=== PATIENT | female | born 1990 | race African-American/Black ===

== ENCOUNTER 2021-01-16 19:53 | Emergency (ER) | payer BC ==
[2021-01-17 13:46] LABS: SARS-CoV-2 PCR by NAA Not Detected (NotDetected)
== END 2021-01-16 21:20 | disposition home or self-care (01) ==
LOC: NAV ERS 19:53
DX: J06.9 Acute upper respiratory infection, unspecified (principal); Z20.822 Contact with and (suspected) exposure to COVID-19
CPT/HCPCS: 87635; 87804; 99283; U0003; U0005